=== PATIENT | female | born 2000 | race Caucasian/White ===

== ENCOUNTER 2023-06-27 12:00 | Emergency (ER) | payer BC ==
[2023-06-27] MEDS ORDERED: Metoclopramide 10 MG/2 ML SDV IM ONE (12:17)
[2023-06-27] MEDS ORDERED: Ketorolac 30 MG/ML SDV IM ONE (12:17)
== END 2023-06-27 17:15 | disposition home or self-care (01) ==
LOC: MW.ED 12:00
DX: G43.909 Migraine, unspecified, not intractable, without status migrainosus (principal)
CPT/HCPCS: 70450; 96372; 99283; J1885; J2765

== ENCOUNTER 2024-07-29 17:34 | Inpatient (IN) | payer BC ==
[2024-07-29] MEDS ORDERED: Sodium Chloride 0.9% 10 ML Syringe FLUSH PRN (19:46)
[2024-07-29] MEDS ORDERED: Sodium Chloride 0.9% 20 ML SDV IV PRN (19:46)
[2024-07-29] MEDS ORDERED: Nalbuphine 10 MG/1 ML Vial IVPUSH PRN (19:46)
[2024-07-29] MEDS ORDERED: Ondansetron 4 MG/2 ML SDV IVPUSH PRN (19:46)
[2024-07-29] MEDS ORDERED: Sodium Chloride 0.9% 2.5 ML Syringe FLUSH PRN (19:46)
[2024-07-29] MEDS ORDERED: Butorphanol 2 MG/ML SDV IVPUSH PRN (19:46)
[2024-07-29] MEDS ORDERED: Water For Irrigation,Sterile 1,000 ML Container IRR PRN (19:46)
[2024-07-29] MEDS ORDERED: Lidocaine 1% 50 ML MDV INJECT PRN (19:46)
[2024-07-29] MEDS ORDERED: Carboprost Tromethamine 250 MCG/1 mL Vial IM PRN (19:46)
[2024-07-29] MEDS: Lactated Ringers 1,000 ML IV SCH (20:00)
[2024-07-29 20:33] LABS: HEMATOCRIT 37.7 % (37.0-47.0); HEMOGLOBIN 12.5 g/dL (12.0-16.0); MEAN CORPUSCULAR HEMOGLOBIN 27.8 pg (28.0-32.0); MEAN CORPUSCULAR HGB CONC 33.2 g/dL (32.0-36.0); MEAN PLATELET VOLUME 11.8 fL (9.4-12.3); PLATELET COUNT,PLT 251 K/uL (150-400); RED BLOOD CELL COUNT 4.49 M/uL (4.10-5.30); WHITE BLOOD CELL COUNT,WBC 11.87 K/uL (3.9-11.3)
[2024-07-29] MEDS ORDERED: Bupivacaine 0.5% 10 ML SDV ONE (20:33)
[2024-07-29] MEDS ORDERED: Phenylephrine HCl In 0.9% NaCl 1 MG/10 ML Syringe ONE (20:33)
[2024-07-29] MEDS ORDERED: Ropivacaine HCl/PF 200 ML ONE (20:33)
[2024-07-29 20:50] LABS: CREATININE,URINE RAND 74.9 mg/dL; PROTEIN CREATININE RATIO,URINE 0.4; PROTEIN,URINE RANDOM 29.2 mg/dL (<11.9)
[2024-07-29] MEDS ORDERED: ePHEDrine 50 MG/ML SDV IVPUSH PRN (20:53)
[2024-07-29] MEDS ORDERED: Bupivacaine 0.5% 10 ML SDV INJECT ONE (20:54)
[2024-07-29] MEDS ORDERED: ePHEDrine 50 MG/ML SDV IM PRN (20:54)
[2024-07-29 20:56] LABS: A/G RATIO 0.8 (0.9-1.6); ALANINE AMINOTRANSFERASE,ALT 17 IU/L (14-63); ALKALINE PHOSPHATASE 172 U/L (46-116); ASPARTATE AMNIOTRANSFERASE,AST 15 IU/L (15-37); BILIRUBIN TOTAL 0.3 mg/dL (0.2-1.0); BLOOD UREA NITROGEN,BUN 9 mg/dL (7.0-18.0); CALCIUM 9.1 mg/dL (8.5-10.1); CARBON DIOXIDE,CO2 21.3 mmol/L (21.0-32.0); CHLORIDE,CL 103 mmol/L (98-107); CREATININE 0.6 mg/dL (0.6-1.0); GLUCOSE RANDOM 77 mg/dL (74-106); POTASSIUM,K 4.1 mmol/L (3.5-5.1); PROTEIN TOTAL,TP 6.9 g/dL (6.4-8.2); SODIUM,NA 138 mmol/L (136-145)
[2024-07-29] MEDS ORDERED: dexmedeTOMIDine HCl 200 MCG/2 ML SDV EPIDUR SCH (21:00)
[2024-07-29 21:06] LABS: ESTIMATED GFR 128 mL/min (>60)
[2024-07-29] MEDS: Ropivacaine HCl/PF 400 MG in Premix Bag 1 BAG EPIDUR SCH (21:09)
[2024-07-29] MEDS: Phenylephrine HCl In 0.9% NaCl 1 MG/10 ML Syringe IVPUSH PRN (21:30)
[2024-07-29] MEDS: Oxytocin/0.9 % Sodium Chloride 30 UNIT/500 ML BAG IV SCH (21:46)
[2024-07-29] MEDS: Misoprostol 200 MCG Tab RECTAL PRN (22:30)
[2024-07-29] MEDS ORDERED: Simethicone 80 MG Tab.Chew PO PRN (22:53)
[2024-07-29] MEDS ORDERED: diphenhydrAMINE 50 MG Cap PO PRN (22:53)
[2024-07-29] MEDS ORDERED: Docusate Sodium 100 MG Cap PO PRN (22:53)
[2024-07-30 00:34] LABS: PH,UMBILICAL ARTERIAL 7.114 (7.18-7.38); PH,UMBILICAL VENOUS 7.184 (7.25-7.45)
[2024-07-30 01:52] LABS: AMPHETAMINES SCREEN, URINE NEGATIVE (CUTOFF=500); BARBITURATE SCREEN,URINE NEGATIVE (CUTOFF=200); BENZODIAZEPINES SCREEN,URINE NEGATIVE (CUTOFF=150); BUPRENORPHINE SCREEN,URINE NEGATIVE (CUTOFF=10); METHADONE SCREEN, URINE NEGATIVE (CUTOFF=200); METHAMPHETAMINES SCREEN, URINE NEGATIVE (CUTOFF=500); OXYCODONE SCREEN,URINE NEGATIVE (CUT0FF=100); PCP SCREEN,URINE NEGATIVE (CUTOFF=25); THC SCREEN,URINE 20 NG/ML NEGATIVE (CUTOFF=50)
[2024-07-30] MEDS: Witch Hazel Medicated Pads 40/Jar TOP PRN (02:03)
[2024-07-30] MEDS: Benzocaine/Menthol 20%-0.5% Spray 78 GM Cannister TOP PRN (02:04)
[2024-07-30] MEDS: Lanolin 100% Cream 7 GM Tube TOP PRN (02:04)
[2024-07-30] MEDS: Ibuprofen 800 MG Tab PO PRN (05:01)
[2024-07-30] MEDS: Acetaminophen 500 MG Tab PO PRN (05:02)
[2024-07-30 06:53] LABS: HEMOGLOBIN 10.6 g/dL (12.0-16.0); MEAN CORPUSCULAR HGB CONC 33.1 g/dL (32.0-36.0); MEAN CORPUSCULAR VOLUME 84.4 fL (83.0-99.0); PLATELET COUNT,PLT 241 K/uL (150-400); RED BLOOD CELL COUNT 3.79 M/uL (4.10-5.30); WHITE BLOOD CELL COUNT,WBC 14.45 K/uL (3.9-11.3)
[2024-07-30] MEDS: Prenatal Multivitamin with Calcium/Folic Acid/Iron Tab PO SCH (08:12)
[2024-07-30] MEDS: Ferrous Sulfate 325 MG Tab PO SCH (08:12)
== END 2024-07-31 10:28 | disposition home or self-care (01) | DRG 560 ==
LOC: MW.OBCHECK 17:34 → MW.OB 17:37 → MW.OBCHECK 19:45 → MW.OB 19:46 → OBSVTOIN 22:25 → MW.OB 07-30 02:30
PROVIDERS: ADMIT Obstetrics & Gynecology; ATTEND Obstetrics & Gynecology
PROC: 10D07Z6 Extraction of Products of Conception, Vacuum, Via Natural or Artificial Opening (ICD-10-PCS; principal; 2024-07-29)
PROC: 0KQM0ZZ Repair Perineum Muscle, Open Approach (ICD-10-PCS; 2024-07-29)
DX: O13.4 Gestational [pregnancy-induced] hypertension without significant proteinuria, complicating childbirth (principal); Z3A.39 39 weeks gestation of pregnancy; Z37.0 Single live birth; O99.354 Diseases of the nervous system complicating childbirth; G43.109 Migraine with aura, not intractable, without status migrainosus; O99.344 Other mental disorders complicating childbirth; F32.A Depression, unspecified; F41.9 Anxiety disorder, unspecified; O70.1 Second degree perineal laceration during delivery; O69.81X0 Labor and delivery complicated by cord around neck, without compression, not applicable or unspecified; O76 Abnormality in fetal heart rate and rhythm complicating labor and delivery; O99.02 Anemia complicating childbirth; D62 Acute posthemorrhagic anemia; O14.94 Unspecified pre-eclampsia, complicating childbirth
CPT/HCPCS: 36415; 51702; 59025; 59409; 80053; 80305-QW; 82570; 82803; 83615; 84156; 85027; 86592; 86850; 86900; 86901; A9270-GY; J0665; J2371; J2590; J2795; J7120

== ENCOUNTER 2025-09-13 16:59 | Emergency (ER) | payer BC | END 2025-09-13 21:24 | disposition home or self-care (01) | LOC: MW.ED 16:59 | DX: S59.902A Unspecified injury of left elbow, initial encounter (principal); W00.0XXA Fall on same level due to ice and snow, initial encounter; Y93.89 Activity, other specified | CPT/HCPCS: 73080-26-LT; 73080-LT; 99283 ==